=== PATIENT | female | born 1945 | race Caucasian/White ===

== ENCOUNTER 2016-04-29 05:50 | Day surgery (SDC) | payer BC ==
[2016-04-29] MEDS: Lactated Ringers 1,000 ML IV SCH ×2 (06:08→06:17)
[2016-04-29] MEDS ORDERED: DIPRIVAN 200 MG/20 ML IV ONE (08:00)
[2016-04-29 09:10] VITALS: BP 117/59; PULSE 71; O2SAT 96
--- NOTE | 2016-04-29 09:34 | OP ---
SURGERY DATE: 04/29/16 SURGERY TIME: 729 PREOPERATIVE DIAGNOSIS: 1. DYSPHAGIA. POSTOPERATIVE DIAGNOSIS: 1. GASTRITIS. 2. HIATAL HERNIA. PROCEDURE: 1. Esophagogastroduodenoscopy. SURGEON: Dr. Her. ANESTHESIA: MAC, medications given by the Anesthesia Department. BRIEF HISTORY: The patient is a 70 y/o WF who presents now for complaints of food sticking in her chest. She reports solids rather than liquids. The patient was felt to need to have endoscopic evaluation. She was appraised of the risks of the procedure including the risk of perforation, phlebitis, untoward reaction to medication, bleeding, and missed lesions. The patient verbalized her understanding and desired to have the procedure performed. DESCRIPTION OF PROCEDURE: The patient was given the medications by the Anesthesia Department. She had continuous pulse oximetry, ECG monitoring, intermittent BP monitoring, and end tidal CO2 monitoring during the examination. She was placed in the left lateral decubitus position. A bite block was placed and the flexible Olympus gastroscope was used to intubate the oropharynx. The scope was introduced in the esophagus which was normal throughout its length with the exception of the lower 1/6 roughly of the esophagus where a hiatal hernia was noted. The scope was passed along into the stomach where normal gastric rugal folds were seen and these distended nicely with the insufflation of air. The scope was passed along the greater curvature of the stomach to the antrum. The pyloric area appeared to be erythematous, but no erosions or ulcerations were noted. The pylorus was encountered and intubated and the duodenum was inspected and found to be normal. The scope was withdrawn towards the stomach. Again, a retroflex view of the lesser curvature, fundus, and cardia regions of the stomach again revealed the hiatal hernia, but no other mucosal lesions were encountered. The scope was then withdrawn from the patient with careful inspection and no other mucosal lesions being encountered, the scope was removed from the patient who tolerated the procedure well and was sent back to outpatient recovery in good condition.
== END 2016-04-29 08:45 | disposition home or self-care (01) ==
LOC: SDC 05:50
PROVIDERS: ATTEND Family Medicine
PROC: 0DJ08ZZ Inspection of Upper Intestinal Tract, Via Natural or Artificial Opening Endoscopic (ICD-10-PCS; principal; 2016-04-29)
DX: K29.70 Gastritis, unspecified, without bleeding (principal); K44.9 Diaphragmatic hernia without obstruction or gangrene; R13.10 Dysphagia, unspecified
CPT/HCPCS: 00740; J2704

== ENCOUNTER 2021-07-09 05:52 | Day surgery (SDC) | payer BC ==
[2021-07-09] MEDS ORDERED: Lactated Ringers 1,000 ML IV SCH (06:30)
[2021-07-09] MEDS ORDERED: DIPRIVAN 200 MG/20 ML IV ONE ×2 (08:00→08:09)
[2021-07-09] MEDS ORDERED: Lactated Ringers 1,000 ML IV ONE (08:27)
--- NOTE | 2021-07-09 08:53 | OP ---
SURGERY DATE/TIME: 07/09/2021 0757 PREOPERATIVE DIAGNOSIS: Screening exam. POSTOPERATIVE DIAGNOSIS: Mild sigmoid diverticulitis otherwise normal colon. PROCEDURE: Colonoscopy. SURGEON: Dr. Her. ANESTHESIA: Medications given by anesthesia department. HISTORY: The patient is a 75-year-old white female presenting now for screening examination. She was appraised of the risks of the procedure including the risk of perforation, phlebitis, untoward reaction to medication, bleeding and missed lesions. The patient verbalized her understanding and desired to have the procedure performed. DESCRIPTION OF PROCEDURE: The patient was given the medications by the anesthesia department. She had continuous pulse oximetry, ECG monitoring, intermittent blood pressure monitoring and tidal CO2 monitoring during the examination. She was placed in the left lateral decubitus position. A digital rectal examination was performed and revealed normal anal sphincter tone and no masses. The flexible Olympus pediatric colonoscope was used to intubate the rectum. A view of the colon was developed sequentially to the cecum. Upon insertion and withdrawal, including a retroflex view in the rectum was noted a few mild scattered diverticula in the sigmoid colon otherwise normal colon. The scope was removed from the patient who tolerated the procedure well and was sent back to OP recovery in good condition. The prep was noted to be fair to good.
[2021-07-09 09:10] VITALS: BP 129/71; PULSE 84; O2SAT 96
== END 2021-07-09 09:10 | disposition home or self-care (01) ==
LOC: SDC 05:52
PROVIDERS: ATTEND Family Medicine
DX: Z12.11 Encounter for screening for malignant neoplasm of colon (principal); K57.92 Diverticulitis of intestine, part unspecified, without perforation or abscess without bleeding; E11.9 Type 2 diabetes mellitus without complications
CPT/HCPCS: 82947; G0121; 99100; J2704

== ENCOUNTER 2023-08-07 05:47 | Day surgery (SDC) | payer BC ==
[2023-08-07] MEDS: Lactated Ringers 1,000 ML IV SCH (06:17)
[2023-08-07 06:48] VITALS: RESP 18; O2SAT 96
[2023-08-07 06:59] LABS: ANION GAP 10.5 MEQ/L (5-15); Calcium 8.8 mg/dL (8.4-10.2); Creatinine 1 0.68 mg/dL (0.52-1.04); EST GLOMERULAR FILTRATION RATE 90.2 ML/MIN; Potassium 4.1 mmol/L (3.5-5.1)
[2023-08-07] MEDS ORDERED: DIPRIVAN 200 MG/20 ML IV ONE (07:34)
[2023-08-07 08:07] VITALS: TEMP 97.1
[2023-08-07 08:22] VITALS: BP 126/55; PULSE 86
--- NOTE | 2023-08-07 12:09 | OP ---
SURGERY DATE: 08/07/2023 SURGERY TIME: 729 PREOPERATIVE DIAGNOSIS: 1. DYPHAGIA. POSTOPERATIVE DIAGNOSIS: 1. HIATAL HERNIA. 2. MODERATE GASTRITIS. PROCEDURE: 1. Esophagogastroduodenoscopy. SURGEON: Dr. Her. ANESTHESIA: MAC. Medication given by the Anesthesia Department. BRIEF HISTORY: The patient is a 77 year-old WF presenting now for dysphagia issues. The patient reports she chokes when she is trying to swallow. The patient was felt to need to have endoscopic evaluation. She was appraised of the risks of the procedure including the risk of perforation, phlebitis, untoward reaction to medication, bleeding, and missed lesions. The patient verbalized her understanding and desired to have the procedure performed. DESCRIPTION OF PROCEDURE: The patient was given the medications by the Anesthesia Department. She had continuous pulse oximetry, ECG monitoring, and intermittent BP monitoring during the examination. The patient was placed in the left lateral decubitus position. A bite block was placed. The flexible Olympus gastroscope was used to intubate the oropharynx. A view of the larynx was obtained and was normal. The scope was easily introduced in the esophagus which no strictures were noted. The esophagus essentially looked normal throughout its length. The stomach was entered where normal gastric rugal folds were seen and these distended nicely with the insufflation of air. There were areas of erythema in the stomach, but no erosions or ulcerations. The scope was passed along the greater curvature of the stomach to the antrum. The pylorus was encountered and intubated. The duodenum was inspected and found to be normal. The scope was then withdrawn towards the stomach. Again, a retroflex view was obtained of the lesser curvature, fundus, and cardia regions of the stomach and here we noted the patient had a small to medium sized hiatal hernia. The scope was then removed from the patient who tolerated the procedure well and was sent back to outpatient recovery in good condition.
== END 2023-08-07 08:27 | disposition home or self-care (01) ==
LOC: SDC 05:47
PROVIDERS: ATTEND Family Medicine
DX: K29.70 Gastritis, unspecified, without bleeding (principal); R13.10 Dysphagia, unspecified; K44.9 Diaphragmatic hernia without obstruction or gangrene
CPT/HCPCS: 36415; 80048; 83036; 93005; J2704

== ENCOUNTER 2024-07-02 06:57 | Day surgery (SDC) | payer BC ==
[2024-07-02] MEDS ORDERED: Lactated Ringers 1,000 ML IV SCH (07:15)
[2024-07-02] MEDS: TETRACAINE 0.5% STERI-UNIT SOL OP ONE ×2 (08:19→08:40)
[2024-07-02 08:20] LABS: ANION GAP 15.9 MEQ/L (5-15); Calcium 9.3 mg/dL (8.4-10.2); Creatinine 1 0.81 mg/dL (0.52-1.04); EST GLOMERULAR FILTRATION RATE 74.7 ML/MIN; Potassium 3.6 mmol/L (3.5-5.1)
[2024-07-02] MEDS: Ak-Dilate OPHTHALMIC*** 0.71 ML, Cyclogyl 1% OPHTH SOL 0.71 ML, GATIFLOXACIN 0.5% OPHTH... OP SCH (08:20)
[2024-07-02] MEDS: Sodium Chloride 0.9% 1000 ML 1,000 ML IV SCH (08:40)
[2024-07-02] MEDS ORDERED: Zofran 4 MG/2 ML VIAL IV PRN (09:15)
[2024-07-02] MEDS ORDERED: TRIAMCINOLONE 15 MG/ML INJ INTRAOP NR (09:15)
[2024-07-02] MEDS ORDERED: DEXTENZA OP NR (09:15)
[2024-07-02] MEDS ORDERED: DEXMEDETOMIDINE 80 MCG/20ML-NS IV NR (09:15)
[2024-07-02] MEDS ORDERED: BETADINE 5% OPHTHALMIC 30 ML OP NR (09:15)
[2024-07-02] MEDS ORDERED: VIGAMOX/BSS 0.15% SYR IO NR (09:15)
[2024-07-02] MEDS ORDERED: Epinephrine Preservative Free 1 MG/ML INTRAOP NR (09:15)
[2024-07-02] MEDS ORDERED: propofoL IV ONE (10:20)
[2024-07-02] MEDS ORDERED: SUBLIMAZE 100 MCG/2 ML ONE (10:20)
[2024-07-02] MEDS ORDERED: Versed 2 MG/2 ML Injection ONE (10:21)
[2024-07-02 10:47] VITALS: RESP 16; TEMP 97.4
[2024-07-02 10:53] VITALS: O2SAT 94
[2024-07-02] MEDS: ACETAZOLAMIDE 250 MG TABLET PO ONE (10:55)
[2024-07-02 11:04] VITALS: BP 133/67; PULSE 78
== END 2024-07-02 11:11 | disposition home or self-care (01) ==
LOC: SDC 06:57
PROVIDERS: ATTEND Ophthalmology
DX: H25.812 Combined forms of age-related cataract, left eye (principal); E11.9 Type 2 diabetes mellitus without complications; I10 Essential (primary) hypertension
CPT/HCPCS: 36415; 80048; 93005; C1780; J0171; J1096; J2250; J2704; J3010; A9270-GY

== ENCOUNTER 2024-07-30 08:29 | Day surgery (SDC) | payer BC ==
[2024-07-30] MEDS: Sodium Chloride 0.9% 1000 ML 1,000 ML IV SCH (09:11)
[2024-07-30] MEDS: TETRACAINE 0.5% STERI-UNIT SOL OP ONE ×2 (09:17)
[2024-07-30] MEDS: Lactated Ringers 1,000 ML IV SCH (09:18)
[2024-07-30] MEDS: Ak-Dilate OPHTHALMIC*** 0.71 ML, Cyclogyl 1% OPHTH SOL 0.71 ML, GATIFLOXACIN 0.5% OPHTH... OP SCH (09:18)
[2024-07-30 09:52] LABS: ANION GAP 14.5 MEQ/L (5-15); Calcium 8.7 mg/dL (8.4-10.2); Creatinine 1 0.67 mg/dL (0.52-1.04)
[2024-07-30 09:53] LABS: Potassium 3.8 mmol/L (3.5-5.1)
[2024-07-30] MEDS ORDERED: BETADINE 5% OPHTHALMIC 30 ML OP NR (10:30)
[2024-07-30] MEDS ORDERED: TRIAMCINOLONE 15 MG/ML INJ INTRAOP NR (10:30)
[2024-07-30] MEDS ORDERED: Epinephrine Preservative Free 1 MG/ML INTRAOP NR (10:30)
[2024-07-30] MEDS ORDERED: VIGAMOX/BSS 0.15% SYR IO NR (10:30)
[2024-07-30] MEDS ORDERED: DEXMEDETOMIDINE 80 MCG/20ML-NS IV NR (10:30)
[2024-07-30] MEDS ORDERED: Zofran 4 MG/2 ML VIAL IV PRN (10:45)
[2024-07-30] MEDS ORDERED: propofoL IV ONE (11:51)
[2024-07-30] MEDS ORDERED: SUBLIMAZE 100 MCG/2 ML ONE (11:51)
[2024-07-30] MEDS ORDERED: Versed 2 MG/2 ML Injection ONE (11:51)
[2024-07-30 12:41] VITALS: TEMP 97.7
[2024-07-30 12:45] VITALS: BP 133/77; PULSE 72; RESP 18; O2SAT 98
[2024-07-30] MEDS: ACETAZOLAMIDE 250 MG TABLET PO ONE (12:46)
== END 2024-07-30 12:55 | disposition home or self-care (01) ==
LOC: SDC 08:29
PROVIDERS: ATTEND Ophthalmology
DX: H25.811 Combined forms of age-related cataract, right eye (principal); E11.9 Type 2 diabetes mellitus without complications; I10 Essential (primary) hypertension
CPT/HCPCS: 36415; 80048; 99100; C1780; J2250; J2704; J3010; A9270-GY